=== PATIENT | male | born 1980 | race Hispanic/Latino ===

== ENCOUNTER 2021-04-05 11:52 | Emergency (ER) | payer OTHER, SELFPAY ==
[2021-04-05 12:25] VITALS: BP 144/80; PULSE 65; RESP 16; TEMP 36.6; O2SAT 100
--- NOTE | 2021-04-05 12:34 | ED.EAR ---
HPI - Ear Problem General Chief complaint: Ear Stated complaint: Ear Pain Time Seen by Provider: 04/05/21 12:34 Source: patient Mode of arrival: ambulatory Limitations: no limitations History of Present Illness HPI Narrative: Charanjit Anaya is a 40-year-old male with no prior medical history comes to [facility] with complaints of left ear pain that started yesterday and got really painful last night. He has no sore throat or other systemic symptoms Related Data Allergies Allergy/AdvReac Type Severity Reaction Status Date / Time No Known Allergies Allergy Unverified 08/09/17 12:58 Review of Systems Review of Systems: CONSTITUTIONAL: Denies fever, chills, sweats. EYES: Denies visual changes, redness, discharge. ENT: Denies rhinorrhea, congestion, sore throat, left otalgia. CARDIOVASCULAR: Denies chest pain, palpitations, edema. RESPIRATORY: Denies dyspnea, wheezing, cough GASTROINTESTINAL: Denies abdominal pain, nausea, vomiting, diarrhea. GENITOURINARY: Denies dysuria, hematuria, abnormal discharge SKIN: Denies rash or itching. NEUROLOGIC: Denies numbness, or focal weakness. PSYCHIATRIC: Denies anxiety or depression. PMFSH Past Medical History Medical History No acute medical problems Family History Family History Mother Diabetes mellitus Social History Social History (Updated 04/05/21 @ 12:36 by Jo Murcia CNP) Smoking status: Current some day smoker Tobacco type: cigarettes Alcohol intake: current Comments At time of signature, I agree with nursing past medical, surgical, social and family history. There is no relevant family history pertinent to the presenting complaint. Patient's blood pressure is elevated and referred to a PCP for follow-up Exam Narrative: GENERAL: This is a well-nourished, well-developed patient, in mild distress. HEAD: normocephalic, atraumatic. EYES: Sclera clear/white. Vision is grossly intact. EARS: External ears normal, auditory canal on R clear and erythema edema and drainage on left, TMs normal without perforation. Hearing grossly intact. NOSE: External nose normal without nasal discharge, nares without redness, no rhinorrhea. THROAT: Mucous membranes moist, posterior pharynx pink NECK: Neck supple, non-tender CARDIOVASCULAR: Regular rate and rhythm without murmurs, gallops, or rubs. RESPIRATORY: Clear to auscultation. Breath sounds equal bilaterally. No wheezes, rales, or rhonchi. GASTROINTESTINAL: Abdomen soft, SKIN: warm, intact with no suspicious lesions or rash, good texture and turgor. NEURO: awake, alert, and oriented to person, place and time. There were no obvious focal neurologic abnormalities. Steady gait EXTREMITIES: Normal range of motion. BACK: Nontender without deformity Course Course Emergency Course: Patient comes to [facility] with complaints of left ear pain Started on eardrops, Naprosyn, [id number] with PCP Vital Signs Vital signs: Vital Signs Temperature 97.9 F 04/05/21 12:25 Pulse Rate 65 04/05/21 12:25 Respiratory Rate 16 04/05/21 12:25 Blood Pressure 144/80 H 04/05/21 12:25 Pulse Oximetry 100 04/05/21 12:25 Temperature 97.9 F 04/05/21 12:25 Pulse Rate 65 04/05/21 12:25 Respiratory Rate 16 04/05/21 12:25 Blood Pressure 144/80 H 04/05/21 12:25 Pulse Oximetry 100 04/05/21 12:25 Medical Decision Making Vital Signs Vital Signs: Vital Signs Temperature 97.9 F 04/05/21 12:25 Pulse Rate 65 04/05/21 12:25 Respiratory Rate 16 04/05/21 12:25 Blood Pressure 144/80 H 04/05/21 12:25 Pulse Oximetry 100 04/05/21 12:25 Temperature 97.9 F 04/05/21 12:25 Pulse Rate 65 04/05/21 12:25 Respiratory Rate 16 04/05/21 12:25 Blood Pressure 144/80 H 04/05/21 12:25 Pulse Oximetry 100 04/05/21 12:25 Discharge Plan Discharge Clinical Impression:
== END 2021-04-05 12:50 | disposition home or self-care (01) ==
PROVIDERS: Emergency Provider Nurse Practitioner
DX: H60.312 Diffuse otitis externa, left ear (principal)
CPT/HCPCS: 99213; G0463

== ENCOUNTER 2021-08-09 14:20 | Emergency (ER) | payer OTHER, SELFPAY ==
[2021-08-09 14:28] VITALS: BP 153/83; PULSE 70; RESP 16; TEMP 37.1; O2SAT 100
--- NOTE | 2021-08-09 14:28 | ED.EAR ---
HPI - Ear Problem General Chief complaint: Ear Stated complaint: Ear Pain Time Seen by Provider: 08/09/21 14:28 Source: patient, RN notes reviewed and old records reviewed Mode of arrival: ambulatory Limitations: no limitations History of Present Illness HPI Narrative: 41-year-old male presents to the [facility] with right ear pain for couple of days. No treatment prior to arrival. Had something similar couple months ago to the left ear. MD Complaint: ear pain (right) Related Data Allergies Allergy/AdvReac Type Severity Reaction Status Date / Time No Known Allergies Allergy Verified 08/09/21 14:26 Review of Systems Review of Systems: All systems reviewed & are unremarkable except as noted in HPI and below Constitutional: Constitutional: Reports no additional constitutional complaints, Denies chills and Denies fever(s) Eyes: Eyes: Reports no additional eye complaints ENT: Reports as per HPI, Denies change in voice, Denies dental pain, Denies vertigo, Denies dizziness and Denies throat swelling Comments: Ear pain right Cardiovascular: Cardiovascular: Reports no additional cardiovascular complaints, Denies chest pain and Denies dyspnea Respiratory: Respiratory: Reports no additional respiratory complaints, Denies cough and Denies dyspnea Gastrointestinal: Gastrointestinal: Reports no additional gastrointestinal complaints, Denies abdominal pain, Denies nausea and Denies vomiting Musculoskeletal: Musculoskeletal: Reports no additional musculoskeletal complaints Integumentary/Breasts: Skin/Breast: Reports system reviewed and no additional complaints, except as docu Neurologic: Reports system reviewed and no additional complaints, except as documented, Denies vertigo and Denies dizziness Psychiatric: Psychiatric: Reports no additional psychiatric complaints Allergic/Immunologic: Allergic/Immunologic: Reports no additional allergic/immunologic complaints and Denies throat swelling PMFSH Past Medical History Medical History No acute medical problems Family History Family History Mother Diabetes mellitus Social History Social History Smoking status: Current some day smoker Tobacco type: cigarettes Alcohol intake: current Comments At the time of my signature, I reviewed and agree with the nursing past medical, surgical, social, and family history. There is no relevant family history pertinent to the patient complaint. Exam Const: General: healthy appearing and no acute distress Nutritional Appearance: well nourished Orientation/consciousness: patient oriented x3 Limitations: no limitations HENMT: Head: normal to inspection Ears: external ears normal, TM normal on the left, Abnormal EAC present erythema on the right and edema on the right and TM abnormal erythematous on the right General nose exam: Normal external nose present and Normal nasal mucous membranes and turbinates present Face and sinus: normal facial exam Mouth: Yes Normal oral and palatal mucosa present Throat: posterior oropharynx normal, tonsils normal and uvula midline Eyes: Conjunctivae: conjunctivae normal Pupils: Equal, round and reactive pupils present Neck: Neck: normal visual inspection, no lymphadenopathy and no meningeal signs Chest: Chest palpation & inspection: normal inspection of the chest Resp: Effort & Inspection: normal respiratory effort and no use of accessory muscles Auscultation: clear to auscultation bilaterally, no crackles, no rales, no rhonchi and no wheezes Cardio: Rate: regular rate Rhythm: regular rhythm Back/Spine/Pelvis: Back: no CVA tenderness Skin: General skin exam: normal color Rashes: no rashes Wounds: no wounds Neuro: General: patient oriented x3, gait normal, moves all extremities, no meningeal signs and no focal motor deficits Cranial nerves: Y
== END 2021-08-09 14:35 | disposition home or self-care (01) ==
PROVIDERS: Emergency Provider Nurse Practitioner
DX: H66.011 Acute suppurative otitis media with spontaneous rupture of ear drum, right ear (principal); H60.501 Unspecified acute noninfective otitis externa, right ear; F17.210 Nicotine dependence, cigarettes, uncomplicated
CPT/HCPCS: 99213; G0463

== ENCOUNTER 2021-11-02 10:24 | Emergency (ER) | payer OTHER, SELFPAY ==
[2021-11-02 10:24] VITALS: BP 141/83; PULSE 75; RESP 16; TEMP 37.6; O2SAT 100
--- NOTE | 2021-11-02 10:41 | ED.ABDPAIN ---
HPI - Abdominal Pain General Chief Complaint: Abdominal Pain Stated Complaint: Abdominal Pain Time Seen by Provider: 11/02/21 10:41 Source: patient Mode of arrival: ambulatory Limitations: no limitations History of Present Illness HPI narrative: 41-year-old male with no significant medical history presents to the [facility] with complaint of intermittent epigastric pain that has been mild over the past week. Has not taken any pain medication to treat it. Reports that yesterday he ate rice, fries and tamales and he felt nauseated and epigastric pain was worse. It then improved. At dinner he ate a red chili barbecue sauce type meat and reports that epigastric pain was back with vomiting. He has now feeling better again. He does not have a primary care physician. No nausea vomiting at this time. No urinary symptoms. Reports bowel movements have been normal. All systems reviewed and negative except as noted above. Related Data Allergies Allergy/AdvReac Type Severity Reaction Status Date / Time No Known Allergies Allergy Verified 11/02/21 10:26 Review of Systems Review of Systems: CONSTITUTIONAL: Denies fever, chills, or sweats. EYES: Denies visual changes, redness, or discharge. ENT: Denies rhinorrhea, congestion, sore throat, or otalgia. CARDIOVASCULAR: Denies chest pain, palpitations, or edema. RESPIRATORY: Denies cough or dyspnea. GASTROINTESTINAL: Reports epigastric abdominal pain, nausea, vomiting. Denies diarrhea. GENITOURINARY: Denies dysuria or hematuria. SKIN: Denies rash or itching. MUSCULOSKELETAL: Denies back pain, joint pain, or myalgia. NEUROLOGIC: Denies headache, numbness, or weakness. PSYCHIATRIC: Denies anxiety or depression. All other systems reviewed are negative, except as documented in HPI. [facility] Past Medical History Medical History No acute medical problems Family History Family History Mother Diabetes mellitus Social History Social History Smoking status: Current some day smoker Tobacco type: cigarettes Alcohol intake: current Comments At time of signature, agree with nursing past medical, surgical, social and family history. There is no relevant family history pertinent to the presenting complaint. Exam Narrative: GENERAL: This is a well-nourished, well-developed patient, in no apparent distress. HEAD: normocephalic, atraumatic. EYES: PERRL. Sclera clear/white. Vision is grossly intact. EARS: External ears normal NOSE: External nose normal NECK: Neck supple, non-tender without lymphadenopathy, masses or thyromegaly. CARDIOVASCULAR: Regular rate and rhythm without murmurs, gallops, or rubs. RESPIRATORY: Clear to auscultation. Breath sounds equal bilaterally. No wheezes, rales, or rhonchi. GASTROINTESTINAL: Abdomen soft, non-tender, nondistended. Bowel sounds are active. No hepato-splenomegaly, or palpable masses. No guarding. SKIN: warm, Dry, intact with no suspicious lesions or rash, good texture and turgor. NEURO: awake, alert, and oriented to person, place and time. There were no obvious focal neurologic abnormalities. EXTREMITIES: Normal range of motion to all extremities. BACK: Nontender without deformity. No CVA tenderness. Course Course Level of Care: Express Care Visit Vital Signs Vital signs: Reviewed MDM - Abdominal Pain MDM Narrative Medical decision making narrative: Patient symptoms concerning for indigestion versus gallbladder. He is afebrile. His symptoms have resolved at this time. He has no abdominal tenderness. Prescribed Pepcid. Referred to a PCP for follow-up. Recommend he have an outpatient right upper quadrant ultrasound. Discussed that he go to the ER for severe pain, vomiting, worsening of symptoms. Patient is aware of diagnosis, understands and agrees to treatment plan. Venecia carvajal
== END 2021-11-02 10:55 | disposition home or self-care (01) ==
PROVIDERS: Emergency Provider Nurse Practitioner Family
DX: R10.13 Epigastric pain (principal); F17.210 Nicotine dependence, cigarettes, uncomplicated
CPT/HCPCS: 99213; G0463

== ENCOUNTER 2021-11-02 13:23 | Emergency (ER) | payer OTHER, SELFPAY ==
--- NOTE | ~2021-11-02 | CT_ITS ---
EXAMINATION: CT abdomen pelvis w con DATE: 11/02/2021 15:37 INDICATION: rlq pain TECHNIQUE: Computed tomography (CT) of the abdomen and pelvis was performed with 100 mL Omnipaque-300 intravenous contrast. Automated exposure control and iterative reconstruction technique were employe d. The dose-length product was 561.34 mGy-cm. COMPARISON: None FINDINGS: Lower thorax: Unremarkable Liver: Normal. Biliary/Gallbladder: Gallbladder is normal. No bile duct dilation. Spleen: Normal. Pancreas: No mass or duct dilation. Adrenals:No mass. Kidneys: No mass, stone, or hydronephrosis. GI tract: No small or large bowel dilation. Normal appendix. Mesentery/Peritoneum: No ascites, mass, or free air. Retroperitoneum: No mass. Pelvis: Pelvic organs are within normal limits. Soft Tissues: Soft tissues and body wall unremarkable. Bones: No acute osseous finding. IMPRESSION: No acute abdominopelvic process. Reviewed, dictated and finalized at location K.
--- NOTE | ~2021-11-02 | US_ITS ---
EXAMINATION: US abdomen limited DATE: 11/02/2021 14:29 INDICATION: Right upper quadrant pain TECHNIQUE: Multiple grayscale and Doppler ultrasound images of the abdomen were obtained. COMPARISON: None available FINDINGS: The head and body of the pancreas are normal. The pancreatic tail is obscured by bowel gas. There is a 1.2 cm mildly hyperechoic mass in the left hepatic lobe. The liver is otherwise normal wi th normal echogenicity and echotexture. No surface nodularity. Normal hepatopetal flow in the main po rtal vein. The gallbladder is normal with no abnormal wall thickening, pericholecystic fluid or stone s. The normal common bile duct measures 4 mm. There was no sonographic Hurtado sign. IMPRESSION: 1. Normal sonographic study of the gallbladder. 2. Subtle hyperechoic lesion in the left hepatic lobe, likely benign hemangioma or focal nodular hype rplasia in the absence of known malignancy. Reviewed, dictated and finalized at location A. IMPRESSION: 1. Normal sonographic study of the gallbladder. 2. Subtle hyperechoic lesion in the left hepatic lobe, likely benign hemangioma or focal nodular hyperplasia in the absence of known malignancy.
[2021-11-02 13:37] VITALS: BP 128/79; PULSE 74; RESP 16; TEMP 36.6; O2SAT 99
--- NOTE | 2021-11-02 13:52 | ED.ABDPAIN ---
HPI - Abdominal Pain General Chief Complaint: Abdominal Pain <VAMSI Ontiveros Last Filed: 11/02/21 17:26> Stated Complaint: abd pain <VAMSI Ontiveros Last Filed: 11/02/21 17:26> Time Seen by Provider: 11/02/21 13:36 <VAMSI Ontiveros Last Filed: 11/02/21 17:26> Source: manufacturing director (libyan) <VAMSI Ontiveros Last Filed: 11/02/21 17:26> History of Present Illness HPI narrative: Patient is a 41-year-old healthy male here with his for evaluation of right upper quadrant pain for the past 2 weeks. He states that first the pain was intermittent in nature, but now has progressed in severity. The pain is worse after meals. His last meal was a [employer] breakfast sandwich 30 minutes ago, and after eating that his pain worsened. He also feels nauseous, and has had about 2 episodes of vomiting nonbloody, nonbilious emesis in total. Denies fevers, chills, changes to his stools, urinary frequency or urgency. No surgical history. <VAMSI Ontiveros Last Filed: 11/02/21 17:26> Related Data Allergies/Adverse Reactions: Allergies Allergy/AdvReac Type Severity Reaction Status Date / Time No Known Allergies Allergy Verified 11/02/21 10:26 <VAMSI Ontiveros Last Filed: 11/02/21 17:26> Review of Systems Review of Systems: Gen: Denies fevers or chills Eyes: Denies eye pain or visual change ENT: Denies congestion Respiratory: Denies shortness of breath or cough CV: Denies chest pain or palpitations GI: Reports abdominal pain, nausea, vomiting. Denies diarrhea denies burning, urgency, frequency or hematuria Musculoskeletal: Denies back pain or muscle pain Neuro: Denies numbness, tingling, weakness or focal weakness Skin: Denies rash Except as documented, all other systems reviewed and negative <VAMSI Ontiveros Last Filed: 11/02/21 17:26> All systems reviewed & are unremarkable except as noted in HPI and below <Lindy Jackson PA-C - Last Filed: 11/02/21 17:26> [facility] Past Medical History Medical History: Medical History No acute medical problems <Lindy Jackson PA-C - Last Filed: 11/02/21 17:26> Family History Family History: Family History Mother Diabetes mellitus <Lindy Jackson PA-C - Last Filed: 11/02/21 17:26> Social History Social History: Social History Smoking status: Current some day smoker Tobacco type: cigarettes Alcohol intake: current <Lindy Jackson PA-C - Last Filed: 11/02/21 17:26> Exam Narrative: APPEARANCE: Well appearing, no pain in distress, well-nourished. Head: normocephalic and atraumatic. EYES: PERRLA/EOMI, conjunctivae clear NOSE: No nasal drainage EARS: External ear normal in appearance THROAT: Oropharynx is clear. Mucous membranes are moist. NECK: Supple. No adenopathy, no masses. RESPIRATORY: Airway patent, respirations nonlabored. Clear to auscultation bilaterally, no rales, rhonchi, wheezing. CARDIOVASCULAR: Regular rate and rhythm without murmurs, rubs, or gallops. ABDOMINAL: Mild tenderness to palpation in right upper quadrant. Normoactive bowel sounds. Soft, nondistended. No rebound tenderness or guarding. MUSCULOSKELETAL: Extremities are warm and well-perfused. Moves all extremities well. No edema. NEURO: Normal speech. No focal neurologic deficits. SKIN: Skin is warm and dry. No rashes. PSYCHIATRIC: Normal affect/mood. <Lindy Jackson PA-C - Last Filed: 11/02/21 17:26> Course TIMBER GRADER/PA Physician Supervision I did not see this patient nor was the care plan discussed with me, labs and imaging reviewed. I was available for evaluation and consultation, I agree with the documentation <Pillo Cavazos MD - Last Filed: 11/02/21 19:4
[2021-11-02] MEDS: FAMOTIDINE 20 MG/2 ML VIAL IV PUSH (14:27)
[2021-11-02 14:33] LABS: Basophils Percent Auto 0.4 % (0.2-1.2); Eosinophils Absolute Auto 0.4 K/mm3 (0-0.3); Eosinophils Percent Auto 4.2 % (0-4.4); Hematocrit 44.2 % (42.0-52.0); Hemoglobin 15.5 g/dL (14.0-18.0); Immature Granulocyte Absolute 0.05 K/mm3 (0.00-0.031); Immature Granulocyte Percent A 0.5 % (0-0.5); Lymphocytes Absolute Auto 1.44 K/mm3 (0.9-3.2); Lymphocytes Percent Auto 15.2 % (18.3-44.2); Mean Corpuscular HGB Conc 35.1 g/dl (32-36); Mean Corpuscular Hemoglobin 30.9 pg (26-34); Mean Corpuscular Volume 88.2 fl (80-100); Mean Platelet Volume 9.2 fl (7.4-10.4); Monocytes Absolute Auto 0.6 K/mm3 (0.1-0.6); Monocytes Percent Auto 6.6 % (2.6-8.5); Neutrophils Absolute Auto 6.9 K/mm3 (1.3-6.7); Neutrophils Percent Auto 73.1 % (45.5-73.1); Platelet Count Result 205 k/mm3 (150-375); Red Blood Count 5.01 M/mm3 (4.6-6.20); Red Cell Distribution Width 12.2 % (11.5-14.5); White Blood Count 9.5 K/mm3 (4.5-10.0)
[2021-11-02 14:48] LABS: Alanine Aminotransferase 62 U/L (6-50); Albumin Level 4.3 g/dL (3.5-5.1); Alkaline Phosphatase 72 U/L (38-126); Anion Gap 9 mmol/L (8-16); Aspartate Amino Transferase 38 U/L (17-59); Blood Urea Nitrogen 10 mg/dL (9-20); Calcium 8.2 mg/dL (8.4-10.2); Carbon Dioxide 24 mmol/L (22-30); Chloride 103 mmol/L (98-107); Estimated CRCL calculation 101 ml/min; Estimated Glomerular Filt Rate > 60; Glucose 163 mg/dL (65-110); Lipase 68 U/L (23-300); Potassium 3.4 mmol/L (3.4-5.0); Sodium 136 mmol/L (137-145)
[2021-11-02 17:04] VITALS: BP 132/79; PULSE 64; RESP 20; O2SAT 99
== END 2021-11-02 17:05 | disposition home or self-care (01) ==
PROVIDERS: Physician Assistant; Emergency Provider Emergency Medicine; PCP Emergency Medicine
DX: R10.13 Epigastric pain (principal); F17.210 Nicotine dependence, cigarettes, uncomplicated; K76.9 Liver disease, unspecified
CPT/HCPCS: 36415; 74177; 76705; 80053; 83690; 85025; 96374; 99284; Q9967

== ENCOUNTER 2025-03-26 10:56 | Emergency (ER) | payer OTHER, SELFPAY ==
--- NOTE | ~2025-03-26 | XR_ITS ---
Clinical history:Pain. Status post horse injury Monday EXAM:X-ray scapula left TECHNIQUE:2 images of the left scapula were obtained. Comparisons:None available FINDINGS: There appears to be a mildly displaced fracture of the caudal aspect of the left scapula. Bone mineralization is within normal limits. No other fracture identified. No sclerotic or destructive bone lesions identified. IMPRESSION: 1. There appears to be a mildly displaced fracture of the caudal aspect of the left scapula. A chest CT is recommended for confirmation. 2. No other fracture identified. Reviewed, dictated and finalized at location Q.
--- NOTE | ~2025-03-26 | XR_ITS ---
EXAMINATION: XR shoulder LT min 2V, 03/26/2025 11:40 CDT HISTORY: pain s/p horse inj monday COMPARISON: No comparisons available. Findings: No acute fracture or malalignment. No significant degenerative changes. Soft tissues unremarkable. Impression: No acute fracture or malalignment. Reviewed, dictated and finalized at location P. Impression: No acute fracture or malalignment.
--- NOTE | ~2025-03-26 | XR_ITS ---
EXAMINATION: XR ribs LT 2V w CXR 2V DATE: 03/26/2025 11:54 INDICATION: Pain. Status post worsen injury Monday TECHNIQUE: Frontal and lateral images of the chest in 3 images of the left ribs were obtained. COMPARISON: None available FINDINGS: No rib fractures identified. No pneumothorax. No focal infiltrates, pleural effusion or pulmonary edema. Cardiomediastinal silhouette is normal. Questionable fracture of the left scapula. IMPRESSION: 1. No rib fracture or acute cardiopulmonary disease. 2. Questionable fracture of the left scapula. A chest CT is recommended. Reviewed, dictated and finalized at location Q.
--- NOTE | ~2025-03-26 | CT_ITS ---
EXAMINATION: CT cervical spine wo con DATE: 03/26/2025 11:43 INDICATION: Left-sided neck pain post injury TECHNIQUE: Computed tomography (CT) of the cervical spine was performed without intravenous contrast. Automated exposure control and iterative reconstruction technique were employed. The dose-length product was 435.45 mGy-cm. COMPARISON: None FINDINGS: Alignment is normal. Vertebral body heights are normal. No fracture. Disc heights are normal. No central canal stenosis. Multilevel mild bilateral cervical facet and uncovertebral osteoarthritis. No neural foraminal stenosis. Visualized cervical soft tissues are unremarkable. Visualized apices of lungs are clear. IMPRESSION: 1. Mild cervical facet and uncovertebral osteoarthritis. No acute osseous abnormality. Reviewed, dictated and finalized at location A. IMPRESSION: 1. Mild cervical facet and uncovertebral osteoarthritis. No acute osseous abnor mality.
--- NOTE | ~2025-03-26 | CT_ITS ---
CT HEAD NON-CONTRAST Clinical History: inj from horse Monday, AWAD, L subconj hemorrhage Comparison: None Technique: Unenhanced axial images skull base to vertex Coronal, sagittal reformats CT images acquired with automatic exposure control for dose reduction DLP: 605 mGy-cm Findings: Sulci, ventricles: Unremarkable. No intracerebral hemorrhage. No evidence acute territorial infarct. No mass effect, midline shift. Bony calvarium intact. Visualized paranasal sinuses: Maxillary disease. Mastoid air cells: Clear. IMPRESSION: 1. No acute intracranial findings. Reviewed, dictated and finalized at location R.
--- NOTE | ~2025-03-26 | CT_ITS ---
EXAMINATION: CT diagnostic chest wo con DATE: 03/26/2025 12:39 INDICATION: L scapula fx? horse injury monday TECHNIQUE: Computed tomography (CT) of the chest was performed without intravenous contrast. Additional 3D reconstructions utilizing coronal maximum intensity projection (MIP) were performed. Automated exposure control and iterative reconstruction technique were employed. The dose-length product was 39 2.11 mGy-cm. COMPARISON: Radiographs dated 03/26/2025 FINDINGS: Minimal dependent atelectasis in the bilateral lower lobes. No pulmonary hemorrhage, pulmonary edema, pneumonia, pleural effusion or pneumothorax.. Heart size is normal. No pericardial effusion. Thoracic aorta is normal in caliber. No pathologically enlarged thoracic lymphadenopathy. Visualized upper abdomen is unremarkable. Minimally displaced fracture of the inferior body scapula. In addition there are acute appearing superior endplate compression fractures at T4 and T5 with negligible vertebral body height loss at the former and 10% anterior vertebral body height loss at the latter. IMPRESSION: 1. Minimally displaced fracture of the inferior left scapular body. 2. Acute-appearing superior endplate compression fractures at T4 and T5 with negligible vertebral body height loss at the former and 10% anterior vertebral body height loss at the latter. 2. Minimal dependent atelectasis in both lower lobes. No other acute cardiopulmonary disease. Reviewed, dictated and finalized at location A. IMPRESSION: 1. Minimally displaced fracture of the inferior left scapular body. 2. Acute-appearing superior endplate compression fractures at T4 and T5 with ne gligible vertebral body height loss at the former and 10% anterior vertebral bobby dy height loss at the latter. 2. Minimal dependent atelectasis in both lower lobes. No other acute cardiopulm onary disease.
[2025-03-26 11:05] VITALS: BP 158/100; PULSE 65; RESP 18; TEMP 36.6; O2SAT 100
[2025-03-26] MEDS: LIDOCAINE 5% PATCH 1 PATCH TRANSDERM ×2 (11:58→12:12)
[2025-03-26] MEDS: HYDROcodone/acetaminophen (*CRX) 5-325 MG TABLET 1 TAB PO (11:58)
--- NOTE | 2025-03-26 13:26 | ED_ITS ---
HPI - Neck Pain/Injury General Chief Complaint: Neck Pain/Injury Stated Complaint: neck pain after fall off horse Time Seen by Provider: 03/26/25 11:03 Source: patient Mode of arrival: ambulatory Limitations: no limitations History of Present Illness HPI Narrative: Patient is a 44-year-old male who presents the ED with report of pain to his left shoulder and neck. Patient is primarily Japanese-speaking. TM vacuum closing machine operator was utilized for assistance with translation. Patient reports he was kicked by his horse on Monday. Was seen at [facility] at that time and states he underwent CT scans and XRays and everything looked OK. He had a laceration to his L ear which was repaired there. Scheduled to follow-up with ENT next month. Reports redness to his L eye, denies any eye pain or vision changes. Reports worsening pain to his left-sided neck, shoulder, left-sided ribs/upper back. Denies SOB. Denies numbness/tingling. Denies abd pain. Related Data Allergies Allergy/AdvReac Type Severity Reaction Status Date / Time No Known Allergies Allergy Verified 03/26/25 10:58 Review of Systems Review of Systems: All systems reviewed & are unremarkable except as noted in HPI. All systems reviewed & are unremarkable except as noted in HPI and below PMFSH Past Medical History Medical History No acute medical problems Family History Family History Mother Diabetes mellitus Social History Social History Smoking status: Current some day smoker Tobacco type: cigarettes Alcohol intake: current Exam Narrative: GENERAL: Well appearing, well-nourished, non-toxic, in no acute distress. HEAD: Normocephalic, atraumatic. EYES: L Eye subconjunctival hemorrhage. PERRLA/EOMI, R conjunctiva clear. NECK: No midline cervical spinal tenderness. Positive tenderness throughout left-sided paraspinal musculature into left upper trapezius region. RESPIRATORY: Airway patent, respirations nonlabored. Clear to auscultation bilaterally, no rales, rhonchi, wheezing. Lung sounds are equal bilaterally. CARDIOVASCULAR: Regular rate and rhythm without murmurs, rubs, or gallops. MUSCULOSKELETAL: Moves all extremities. No gross deformities. TTP over L upper back/posterior shoulder, L upper lateral ribs. No palpable bony deformities. Sensation is intact throughout left upper extremity. No midline spinal tenderness throughout thoracic or lumbar region. SKIN: Warm, dry, normal color. NEURO: A&O X3. Speech clear. Cranial nerves II-XII grossly intact. Steady gait. No ataxic movements. PSYCHIATRIC: Appropriate mood and affect. Normal interaction. Course Vital Signs Vital signs: Vital Signs Temperature 98 F 03/26/25 11:05 Pulse Rate 65 03/26/25 11:05 Respiratory Rate 18 03/26/25 11:05 Blood Pressure 158/100 H 03/26/25 11:05 Pulse Oximetry 100 03/26/25 11:05 Oxygen Delivery Room Air 03/26/25 11:05 Temperature 98 F 03/26/25 11:05 Pulse Rate 65 03/26/25 11:05 Respiratory Rate 18 03/26/25 11:05 Blood Pressure 158/100 H 03/26/25 11:05 Pulse Oximetry 100 03/26/25 11:05 Oxygen Delivery Room Air 03/26/25 11:05 MDM - Neck Pain/Injury MDM Narrative Medical decision making narrative: Patient presented to ED status post injury from his horse on Monday, complaining of worsening pain throughout left-sided neck, left shoulder, left upper back. Vital signs are stable upon arrival. Patient is in no acute distress. No respiratory distress. Lung sounds are equal bilaterally. Exam also notable for is of conjunctival hemorrhage on left, however patient having no pain throughout his left eye whatsoever, no sensitivity to light, no vision changes. PERRL/EOMI. CT brain without acute findings CT cervical spine negative X-ray of left shoulder negative X-ray of left ribs negative Left scapular x-ray with possible fracture. Recommended CT of chest CT of chest was obtained and does show minimally displaced fracture of left inferior scapular body. Does also show compression fractures of T4 and T5 with minimal height loss. Patient placed in arm sling. Discussed case with Dr. Moscoso, orthopedics, will f/u with patient in the office, advised will likely heal on its own Patient does not have any significant focal midline thoracic spinal tenderness. Suspect discomfort is more related to muscular strain, scapular fracture. Discussed case with Dr. Alvarado, neurosurgery, advise no indication for bracing, will likely heal on its own given minimal height loss and patient's age. Discussed imaging findings with patient. He is in agreement with plan for outpatient follow-up. Will prescribe pain medication, muscle relaxers for home. Given strict return precautions. He voiced understanding. Discharged in stable condition. Medical Records Attestation: I reviewed the patient's medical records. Imaging Data Attestation: I personally reviewed and interpreted this imaging study as follows: Radiologist's impression: ITS Impressions Head CT 03/26/25 11:42 IMPRESSION: 1. No acute intracranial findings. Cervical Spine CT 03/26/25 11:48 IMPRESSION: 1. Mild cervical facet and uncovertebral osteoarthritis. No acute osseous abnormality. Shoulder X-Ray 03/26/25 12:06 Impression: No acute fracture or malalignment. Scapula X-Ray 03/26/25 12:07 IMPRESSION: 1. There appears to be a mildly displaced fracture of the caudal aspect of the left scapula. A chest CT is recommended for confirmation. 2. No other fracture identified. Ribs w/Chest X-Ray 03/26/25 12:13 IMPRESSION: 1. No rib fracture or acute cardiopulmonary disease. 2. Questionable fracture of the left scapula. A chest CT is recommended. Chest CT 03/26/25 12:57 IMPRESSION: 1. Minimally displaced fracture of the inferior left scapular body. 2. Acute-appearing superior endplate compression fractures at T4 and T5 with negligible vertebral body height loss at the former and 10% anterior vertebral body height loss at the latter. 2. Minimal dependent atelectasis in both lower lobes. No other acute cardiopulmonary disease. Discharge Plan Discharge Clinical Impression: Injury while horseback riding, Strain of cervical portion of left trapezius muscle Fracture of left scapula Qualifiers: Encounter type: initial encounter Scapula location: body Fracture type: closed Fracture alignment: nondisplaced Qualified Code(s): S42.115A - Nondisplaced fracture of body of scapula, left shoulder, initial encounter for closed fracture Compression fracture of T4 vertebra Qualifiers: Encounter type: initial encounter Qualified Code(s): S22.040A - Wedge compression fracture of fourth thoracic vertebra, initial encounter for closed fracture Compression fracture of T5 vertebra Qualifiers: Encounter type: initial encounter Qualified Code(s): S22.050A - Wedge compression fracture of T5-T6 vertebra, initial encounter for closed fracture Patient Disposition: Home Condition: Stable Instructions: Antibiotic Form, Cervical Strain (ED), Scapular Fracture (ED), Vertebral Compression Fracture (ED) Additional Instructions: Wear sling at all times. You may remove this for showering/sleeping, but avoid use of arm. Follow-up with orthopedics for further evaluation of this. Call office to make appointment. Continue Tylenol and Ibuprofen as needed for pain. You can take 1000mg of Tylenol and 600mg of Ibuprofen every 6 hours. Utilize Calvin as needed for more severe pain. You may use ice/heat, lidocaine patches to area of pain. Take muscle relaxers as needed and prescribed. Recommend taking these at night as they may cause sedation. Do not drive, operate heavy machinery, drink alcohol while on muscle relaxers as this may cause further sedation. Return to the ED if you experience worsening or severe pain, recurrent injury, severe numbness in arms, difficulty breathing, vision changes, severe dizziness, unable to keep down food or drink, or any other symptoms of concern. Patient Language: Japanese Prescriptions: New hydrocodone-acetaminophen 5-325 mg tablet 1 tablet PO Q6H PRN (Reason: pain) Qty: 15 0RF methocarbamol 750 mg tablet 1,500 mg PO TID PRN (Reason: muscle spasm) Qty: 15 0RF lidocaine 5 % adhesive patch,medicated 1 patch topical DAILY Qty: 15 0RF Rx Instructions: leave on most painful area for up to 12 hrs No Action famotidine 20 mg tablet 20 mg PO DAILY 30 Days Qty: 30 0RF Follow-up/Referrals: Rodrigue Sims MD [Primary Care Provider, Family Practice] John Moscoso MD [Physician, Orthopedics] Referral Note: ORTHOPEDICS Time of Disposition: 14:24
== END 2025-03-26 14:28 | disposition home or self-care (01) ==
PROVIDERS: Emergency Provider Physician Assistant; PCP Emergency Medicine
DX: S42.115A Nondisplaced fracture of body of scapula, left shoulder, initial encounter for closed fracture (principal); S22.040A Wedge compression fracture of fourth thoracic vertebra, initial encounter for closed fracture; S22.050A Wedge compression fracture of T5-T6 vertebra, initial encounter for closed fracture; F17.210 Nicotine dependence, cigarettes, uncomplicated; M47.812 Spondylosis without myelopathy or radiculopathy, cervical region; W55.12XA Struck by horse, initial encounter
CPT/HCPCS: 70450; 71046; 71100; 71250; 72125; 73010; 73030; 99284; A4565; A9270

== ENCOUNTER 2025-05-06 14:33 | Outpatient (CLI) | payer OTHER, SELFPAY ==
--- NOTE | ~2025-05-06 | XR_ITS ---
EXAMINATION: XR shoulder LT min 2V, 05/06/2025 14:47 INDUSTRIAL COOK HISTORY: S42.115A - Nondisplaced fracture of body of scapula, left... COMPARISON: Comparison 03/26/2025 CT Findings: No acute fracture or malalignment. No significant degenerative changes. Soft tissues unremarkable. Impression: No acute fracture or malalignment.Scapular fracture not well appreciated. CT suggested to assess as clinically warranted Reviewed, dictated and finalized at location P. STRIAL COOK Impression: No acute fracture or malalignment.Scapular fracture not well appreciated. CT ahmadi ggested to assess as clinically warranted
== END 2025-05-06 14:34 | disposition home or self-care (01) ==
PROVIDERS: PCP Emergency Medicine; Visit Provider Physician Assistant Surgical
DX: S42.115A Nondisplaced fracture of body of scapula, left shoulder, initial encounter for closed fracture (principal); X58.XXXA Exposure to other specified factors, initial encounter
CPT/HCPCS: 73030